=== PATIENT | male | born 1935 | race Caucasian/White ===

== ENCOUNTER 2016-12-03 19:44 | Inpatient (IN) | payer OTHER ==
[~2016-12-03] VITALS: Ht 182.9 cm; Wt 97.1 kg
[~2016-12-03 19:44] MED LIST: ACETAMINOPHEN500 MG PO; AMLODIPINE BESY10 MG PO; ASPIRIN EC325 MG PO; ATORVASTATIN CA40 MG PO; BISOPROLOL-HCT1 EAC1 PO; CARBAMAZEPINE100 M1 PO; CEPHALEXIN500 MG PO; CLEOCIN300 MG PO; COLACE100 MG PO; CYCLOBENZAPRINE10 MG PO; Colace PO; GLUCOPHAGE500 MG PO; HEPARIN SO5000 UNITS SC; Heparin Sodium SC; KETOCONAZOLE60 GM TP; LIPITOR40 MG PO; LISINOPRIL20 MG PO; LITE COAT ASPI325 M1 PO; LYRICA75 MG PO; METFORMIN HCL500 MG PO; MILK OF MAGNESI10 ML PO; Maxipime IV; NOVOLOG PE100 UNITS/ SC; Nitrostat,NitroQuick SL; OXYCODONE HCL10 MG PO; OXYCODONE HCL5 MG PO; POLYETHYLENE GL17 GM PO; PRAVACHOL40 MG PO; Percocet 5/325,Endoc PO; Pletal PO; Santyl TP; TOPROL XL100 MG PO; TRAMADOL HCL50 MG PO; Tylenol Regular Stre PO; Tylenol/Codeine #3 PO; ZESTRIL,PRINIVI20 MG PO; Zebeta PO; Zestril,Prinivil PO; Ziac 2.5/6.25 PO; Zocor PO; Zosyn IV
[2016-12-03 21:26] LABS: EOSINOPHIL (%) 1.3 % (0-5); EOSINOPHIL COUNT 0.1 K/uL (0-0.3); HEMATOCRIT 35.3 % (38.0-50.0); IMMATURE GRANULOCYTE (%) 0.4 % (0.0-0.7); INSTRUMENT ABS NEUTROPHIL CT 6.8 K/uL; LYMPHOCYTE COUNT 0.6 K/uL (1.0-2.8); MCH 30.6 PG (29.0-34.0); MCHC 34.3 G/DL (30.0-36.0); MCV 89.4 FL (86-99); MEAN PLAT.VOLUME 9.8 uM^3 (9.0-12.4); MONOCYTE (%) 7.5 % (3-12); MONOCYTE COUNT 0.6 K/uL (0-0.8); NEUTROPHIL (%) 82.9 % (45-76); NEUTROPHIL COUNT 6.8 K/uL (1.8-6.4); PLATELET COUNT 168 K/uL (156-360); RBC DIS.WIDTH-CV 13.7 % (11.8-14.6); RBC DIS.WIDTH-SD 44.8 % (39-53); RED BLOOD COUNT 3.95 M/uL (4.00-5.50); WHITE BLOOD COUNT 8.2 K/uL (4.1-10.2)
[2016-12-03 21:42] LABS: CHLORIDE 102 mEq/L (99-109); POTASSIUM 4.7 mEq/L (3.7-5.4); SODIUM 135 mEq/L (136-147)
[2016-12-03 21:46] LABS: ANION GAP 9 MEQ/L (2-14); TOTAL BILIRUBIN 0.9 mg/dL (0.0-1.0)
[2016-12-03 21:48] LABS: ALKALINE PHOSPHATASE 125 IU/L (3-129); GFR ESTIMATE (CALCULATED) > 59 mL/min/
[2016-12-03 21:49] LABS: UREA NITROGEN (BUN) 23 mg/dL (9-23)
[2016-12-03 21:51] LABS: GLUCOSE 491 mg/dL (70-99)
[2016-12-03] MEDS ORDERED: ADVIL200 MG PO (23:21)
[2016-12-04 00:50] LABS: POINT-OF-CARE METER ID UU13113702; POINT-OF-CARE USER ID 611181311
[2016-12-04 06:09] LABS: EOSINOPHIL (%) 1.8 % (0-5); EOSINOPHIL COUNT 0.1 K/uL (0-0.3); HEMATOCRIT 31.7 % (38.0-50.0); IMMATURE GRANULOCYTE (%) 0.3 % (0.0-0.7); LYMPHOCYTE COUNT 0.7 K/uL (1.0-2.8); MCH 30.8 PG (29.0-34.0); MCHC 34.7 G/DL (30.0-36.0); MCV 88.8 FL (86-99); MEAN PLAT.VOLUME 9.8 uM^3 (9.0-12.4); MONOCYTE (%) 9.1 % (3-12); MONOCYTE COUNT 0.7 K/uL (0-0.8); NEUTROPHIL (%) 79.2 % (45-76); PLATELET COUNT 155 K/uL (156-360); RBC DIS.WIDTH-CV 13.7 % (11.8-14.6); RBC DIS.WIDTH-SD 44.4 % (39-53); RED BLOOD COUNT 3.57 M/uL (4.00-5.50); WHITE BLOOD COUNT 7.6 K/uL (4.1-10.2)
[2016-12-04 06:15] LABS: CHLORIDE 108 mEq/L (99-109); POTASSIUM 4.3 mEq/L (3.7-5.4); SODIUM 136 mEq/L (136-147)
[2016-12-04 06:17] LABS: GLUCOSE 279 mg/dL (70-99)
[2016-12-04 06:18] LABS: ANION GAP 9 MEQ/L (2-14)
[2016-12-04 06:20] LABS: GFR ESTIMATE (CALCULATED) > 59 mL/min/
[2016-12-04 06:21] LABS: UREA NITROGEN (BUN) 17 mg/dL (9-23)
[2016-12-04 07:23] LABS: POINT-OF-CARE METER ID UU14100415
[2016-12-04 07:27] LABS: Estimated Average Glucose 275 mg/dL (70-123); HEMOGLOBIN A1c (GLYCOHEMOGLOB) 11.2 % HGB (Below 5.7)
[2016-12-04 11:32] LABS: POINT-OF-CARE METER ID UU14100415
[2016-12-04 15:26] VITALS: BP 144/87
[2016-12-04 19:24] VITALS: BP 145/65
[2016-12-04 23:02] VITALS: BP 164/78
[2016-12-05 03:14] VITALS: BP 123/59
[2016-12-05 06:16] LABS: EOSINOPHIL (%) 1.6 % (0-5); EOSINOPHIL COUNT 0.1 K/uL (0-0.3); HEMATOCRIT 31.3 % (38.0-50.0); IMMATURE GRANULOCYTE (%) 0.3 % (0.0-0.7); INSTRUMENT ABS NEUTROPHIL CT 5.6 K/uL; LYMPHOCYTE COUNT 0.6 K/uL (1.0-2.8); MCHC 33.5 G/DL (30.0-36.0); MCV 92.3 FL (86-99); MEAN PLAT.VOLUME 10.1 uM^3 (9.0-12.4); MONOCYTE (%) 8.2 % (3-12); MONOCYTE COUNT 0.6 K/uL (0-0.8); NEUTROPHIL COUNT 5.6 K/uL (1.8-6.4); PLATELET COUNT 148 K/uL (156-360); RBC DIS.WIDTH-CV 14.2 % (11.8-14.6); RBC DIS.WIDTH-SD 48.2 % (39-53); RED BLOOD COUNT 3.39 M/uL (4.00-5.50); WHITE BLOOD COUNT 6.9 K/uL (4.1-10.2)
[2016-12-05 06:40] LABS: ANION GAP 8 MEQ/L (2-14); CHLORIDE 112 MEQ/L (99-109); GFR ESTIMATE (CALCULATED) > 59 mL/min/; SAMPLE HEMOLYSIS CHECK 0; SAMPLE ICTERIC CHECK 0; SAMPLE LIPEMIA CHECK 0; SODIUM 140 MEQ/L (136-147); UREA NITROGEN (BUN) 15 mg/dL (9-23)
[2016-12-05 06:42] LABS: GLUCOSE 114 mg/dL (70-99)
[2016-12-05 07:31] VITALS: BP 139/86
[2016-12-05 10:54] VITALS: BP 143/86
[2016-12-05 11:12] LABS: POINT-OF-CARE METER ID UU13113725
[2016-12-05 15:43] LABS: POINT-OF-CARE METER ID UU13113725
[2016-12-05 17:10] VITALS: BP 143/94
[2016-12-05 19:43] VITALS: BP 137/77
[2016-12-05 20:02] LABS: ADD MIUA? NO; BILIRUBIN NEGATIVE; BLOOD NEGATIVE; COLOR YELLOW ((YELLOW)); GLUCOSE (STRIP) 150; KETONES NEGATIVE; LEUKOCYTES NEGATIVE; NITRITE NEGATIVE; PROTEIN (STRIP) NEGATIVE; SPECIFIC GRAVITY 1.023 (1.000-1.030); UCUL ADDED? NO; UROBILINOGEN 0.2 MG/DL (0.2-1.0)
[2016-12-05 21:24] LABS: POINT-OF-CARE METER ID UU13113725
[2016-12-06] VITALS (8 sets, daily range): BP systolic 135–195; BP diastolic 66–90
[2016-12-06 06:17] LABS: POINT-OF-CARE METER ID UU13113725
[2016-12-06 07:00] LABS: EOSINOPHIL (%) 3.7 % (0-5); EOSINOPHIL COUNT 0.2 K/uL (0-0.3); HEMATOCRIT 30.9 % (38.0-50.0); IMMATURE GRANULOCYTE (%) 0.4 % (0.0-0.7); INSTRUMENT ABS NEUTROPHIL CT 4.3 K/uL; LYMPHOCYTE COUNT 0.5 K/uL (1.0-2.8); MCV 91.2 FL (86-99); MEAN PLAT.VOLUME 10.1 uM^3 (9.0-12.4); MONOCYTE (%) 8.8 % (3-12); MONOCYTE COUNT 0.5 K/uL (0-0.8); NEUTROPHIL (%) 78.3 % (45-76); NEUTROPHIL COUNT 4.3 K/uL (1.8-6.4); PLATELET COUNT 146 K/uL (156-360); RBC DIS.WIDTH-CV 14.1 % (11.8-14.6); RBC DIS.WIDTH-SD 46.8 % (39-53); RED BLOOD COUNT 3.39 M/uL (4.00-5.50); WHITE BLOOD COUNT 5.5 K/uL (4.1-10.2)
[2016-12-06 07:03] LABS: ALKALINE PHOSPHATASE 71 IU/L (3-129); ANION GAP 6 MEQ/L (2-14); CHLORIDE 111 MEQ/L (99-109); GFR ESTIMATE (CALCULATED) > 59 mL/min/; GLUCOSE 93 mg/dL (70-99); SAMPLE HEMOLYSIS CHECK 0; SAMPLE ICTERIC CHECK 0; SAMPLE LIPEMIA CHECK 0; SODIUM 138 MEQ/L (136-147); TOTAL BILIRUBIN 0.4 MG/DL (0.0-1.0); UREA NITROGEN (BUN) 12 mg/dL (9-23)
[2016-12-06 12:09] LABS: POINT-OF-CARE METER ID UU13113725
[2016-12-07 06:24] LABS: EOSINOPHIL (%) 4.9 % (0-5); EOSINOPHIL COUNT 0.2 K/uL (0-0.3); HEMATOCRIT 32.7 % (38.0-50.0); IMMATURE GRANULOCYTE (%) 0.8 % (0.0-0.7); INSTRUMENT ABS NEUTROPHIL CT 3.5 K/uL; LYMPHOCYTE COUNT 0.5 K/uL (1.0-2.8); MCH 30.6 PG (29.0-34.0); MCHC 33.6 G/DL (30.0-36.0); MCV 90.8 FL (86-99); MEAN PLAT.VOLUME 9.6 uM^3 (9.0-12.4); MONOCYTE (%) 10.8 % (3-12); MONOCYTE COUNT 0.5 K/uL (0-0.8); NEUTROPHIL (%) 72.1 % (45-76); NEUTROPHIL COUNT 3.5 K/uL (1.8-6.4); PLATELET COUNT 153 K/uL (156-360); RBC DIS.WIDTH-CV 14.1 % (11.8-14.6); RBC DIS.WIDTH-SD 46.8 % (39-53); WHITE BLOOD COUNT 4.9 K/uL (4.1-10.2)
[2016-12-07 07:04] VITALS: BP 186/81
[2016-12-07 09:29] VITALS: BP 176/76
[2016-12-07 11:07] LABS: ALKALINE PHOSPHATASE 82 IU/L (3-129); ANION GAP 5 MEQ/L (2-14); CHLORIDE 108 MEQ/L (99-109); GFR ESTIMATE (CALCULATED) > 59 mL/min/; SAMPLE HEMOLYSIS CHECK 0; SAMPLE ICTERIC CHECK 0; SAMPLE LIPEMIA CHECK 0; SODIUM 137 MEQ/L (136-147); UREA NITROGEN (BUN) 12 mg/dL (9-23)
[2016-12-07 11:08] LABS: GLUCOSE 169 mg/dL (70-99); TOTAL BILIRUBIN 0.5 MG/DL (0.0-1.0)
[2016-12-07 16:17] VITALS: BP 178/83
[2016-12-07 21:09] LABS: POINT-OF-CARE METER ID UU13113725
[2016-12-07 22:26] VITALS: BP 152/73
[2016-12-08 05:46] LABS: POINT-OF-CARE METER ID UU13113725; POINT-OF-CARE USER ID 611181321
[2016-12-08 06:18] LABS: EOSINOPHIL (%) 3.4 % (0-5); EOSINOPHIL COUNT 0.2 K/uL (0-0.3); HEMATOCRIT 32.3 % (38.0-50.0); IMMATURE GRANULOCYTE (%) 0.4 % (0.0-0.7); INSTRUMENT ABS NEUTROPHIL CT 3.9 K/uL; LYMPHOCYTE COUNT 0.4 K/uL (1.0-2.8); MCH 30.9 PG (29.0-34.0); MCHC 33.4 G/DL (30.0-36.0); MCV 92.3 FL (86-99); MEAN PLAT.VOLUME 9.7 uM^3 (9.0-12.4); MONOCYTE (%) 9.7 % (3-12); MONOCYTE COUNT 0.5 K/uL (0-0.8); NEUTROPHIL (%) 78.2 % (45-76); NEUTROPHIL COUNT 3.9 K/uL (1.8-6.4); PLATELET COUNT 145 K/uL (156-360); RBC DIS.WIDTH-CV 14.3 % (11.8-14.6); RBC DIS.WIDTH-SD 48.4 % (39-53)
[2016-12-08 06:50] VITALS: BP 194/84
[2016-12-08 06:50] LABS: ALKALINE PHOSPHATASE 96 IU/L (3-129); ANION GAP 6 MEQ/L (2-14); CHLORIDE 106 MEQ/L (99-109); GFR ESTIMATE (CALCULATED) > 59 mL/min/; GLUCOSE 240 mg/dL (70-99); POTASSIUM 4.5 MEQ/L (3.7-5.4); SAMPLE HEMOLYSIS CHECK 0; SAMPLE ICTERIC CHECK 0; SAMPLE LIPEMIA CHECK 0; SODIUM 138 MEQ/L (136-147); TOTAL BILIRUBIN 0.5 MG/DL (0.0-1.0); UREA NITROGEN (BUN) 14 mg/dL (9-23)
[2016-12-08 11:25] VITALS: BP 95/54
[2016-12-08] MEDS ORDERED: LIDOCAINE700 MG TD (14:19)
[2016-12-08] MEDS ORDERED: ATORVASTATIN CA40 MG PO (14:19)
[2016-12-08] MEDS ORDERED: LISINOPRIL10 MG PO (14:19)
[2016-12-08] MEDS ORDERED: ZINC OXIDE56.7 GM TP (14:21)
[2016-12-08] MEDS ORDERED: Zeasorb Antifungal T TP (14:21)
[2016-12-08] MEDS ORDERED: LEVEMIR100 UNIT/2 SC (14:31)
[2016-12-08 15:40] VITALS: BP 137/82
== END 2016-12-08 17:44 | DRG 637 ==
LOC: EME → EDBD 19:44 → EME 19:44 → 5EAST 12-04 01:29 → EDOF 12-04 01:29 → 5EAST 12-04 14:27
PROVIDERS: Emergency Medicine; Hospitalist; Internal Medicine
DX: E11.628 Type 2 diabetes mellitus with other skin complications (principal); L03.115 Cellulitis of right lower limb; L89.313 Pressure ulcer of right buttock, stage 3; L89.323 Pressure ulcer of left buttock, stage 3; I83.218 Varicose veins of right lower extremity with both ulcer of other part of lower extremity and inflammation; L97.319 Non-pressure chronic ulcer of right ankle with unspecified severity; S90.31XA Contusion of right foot, initial encounter; W19.XXXA Unspecified fall, initial encounter; E11.622 Type 2 diabetes mellitus with other skin ulcer; E11.65 Type 2 diabetes mellitus with hyperglycemia; L30.4 Erythema intertrigo; D64.9 Anemia, unspecified; I10 Essential (primary) hypertension; I70.0 Atherosclerosis of aorta; R29.6 Repeated falls; E78.5 Hyperlipidemia, unspecified; G89.4 Chronic pain syndrome; M47.816 Spondylosis without myelopathy or radiculopathy, lumbar region; M47.812 Spondylosis without myelopathy or radiculopathy, cervical region; C44.42 Squamous cell carcinoma of skin of scalp and neck; J98.11 Atelectasis; M19.90 Unspecified osteoarthritis, unspecified site; I73.9 Peripheral vascular disease, unspecified; L21.9 Seborrheic dermatitis, unspecified; Z91.19 Patient's noncompliance with other medical treatment and regimen; Z66 Do not resuscitate; Z98.1 Arthrodesis status; Z79.4 Long term (current) use of insulin; Z86.73 Personal history of transient ischemic attack (TIA), and cerebral infarction without residual deficits; Z79.82 Long term (current) use of aspirin; Z99.3 Dependence on wheelchair; Z89.512 Acquired absence of left leg below knee; Z85.46 Personal history of malignant neoplasm of prostate; Z96.651 Presence of right artificial knee joint; Z87.891 Personal history of nicotine dependence
CPT/HCPCS: 70450; 71010; 72125; 72148; 80048; 80053; 81003; 82010; 82607; 82948; 83036; 83605; 84443; 85025; 87040; 93970; 94010; 94640; 97530 GP; 99202; 99281; 99285; A6212; J0690; J1644; J1815; J2270; J2405; J3370; J7030

== ENCOUNTER 2017-01-11 14:14 | Inpatient (IN) | payer OTHER ==
[~2017-01-11] VITALS: Ht 182.9 cm; Wt 100.8 kg
[~2017-01-11 14:14] MED LIST changes: +ADVIL200 MG PO; +LEVEMIR100 UNIT/2 SC; +LIDOCAINE700 MG TD; +LISINOPRIL10 MG PO; +ZINC OXIDE56.7 GM TP; +Zeasorb Antifungal T TP
[2017-01-11 14:56] LABS: EOSINOPHIL (%) 0.5 % (0-5); EOSINOPHIL COUNT 0.1 K/uL (0-0.3); HEMATOCRIT 37.2 % (38.0-50.0); IMMATURE GRANULOCYTE (%) 0.2 % (0.0-0.7); INSTRUMENT ABS NEUTROPHIL CT 10.4 K/uL; MCHC 33.3 G/DL (30.0-36.0); MCV 89.9 FL (86-99); MEAN PLAT.VOLUME 10.1 uM^3 (9.0-12.4); NEUTROPHIL (%) 83.5 % (45-76); NEUTROPHIL COUNT 10.4 K/uL (1.8-6.4); PLATELET COUNT 176 K/uL (156-360); RBC DIS.WIDTH-CV 13.5 % (11.8-14.6); RBC DIS.WIDTH-SD 44.4 % (39-53); RED BLOOD COUNT 4.14 M/uL (4.00-5.50); WHITE BLOOD COUNT 12.4 K/uL (4.1-10.2)
[2017-01-11 15:04] LABS: CHLORIDE 107 mEq/L (99-109); POTASSIUM 4.7 mEq/L (3.7-5.4); SODIUM 140 mEq/L (136-147)
[2017-01-11 15:06] LABS: GLUCOSE 128 mg/dL (70-99)
[2017-01-11 15:08] LABS: ANION GAP 10 MEQ/L (2-14)
[2017-01-11 15:10] LABS: GFR ESTIMATE (CALCULATED) > 59 mL/min/
[2017-01-11 15:11] LABS: UREA NITROGEN (BUN) 32 mg/dL (9-23)
[2017-01-11] MEDS ORDERED: AMLODIPINE BESY10 MG PO (16:39)
[2017-01-11] MEDS ORDERED: ASPERCREME1 EACH TP (16:42)
[2017-01-11] MEDS ORDERED: LEVEMIR FL100 UNIT/1 SC ×3 (16:43→17:05)
[2017-01-11] MEDS ORDERED: PRINIVIL20 MG PO (16:57)
[2017-01-11] MEDS ORDERED: NEURONTIN300 MG PO (17:05)
[2017-01-11] MEDS ORDERED: NOVOLOG PE100 UNITS/ SC (17:08)
[2017-01-11] MEDS ORDERED: ROXICODONE5 MG PO (17:09)
[2017-01-11] MEDS ORDERED: DULCOLAX10 MG PR (17:09)
[2017-01-11] MEDS ORDERED: GLUCAGEN1 MG IM (17:10)
[2017-01-11] MEDS ORDERED: FLEET MINERAL133 ML PR (17:10)
[2017-01-11] MEDS ORDERED: GLUTOSE 1537.5 GM PO (17:11)
[2017-01-11] MEDS ORDERED: MILK OF MAGN PO (17:14)
[2017-01-11] MEDS ORDERED: ACETAMINOPHEN325 M1 PO (17:15)
[2017-01-11] MEDS ORDERED: NIZORAL 2% CREA15 GM TP (17:18)
[2017-01-11] MEDS ORDERED: ZINC OXIDE56.7 GM TP (17:19)
[2017-01-11] MEDS ORDERED: ATHENOL325 MG PO (17:20)
[2017-01-11 20:28] VITALS: BP 151/67
[2017-01-11 22:04] LABS: POINT-OF-CARE METER ID UU13113725
[2017-01-11 23:40] VITALS: BP 120/58
[2017-01-12 06:35] LABS: EOSINOPHIL (%) 0.5 % (0-5); EOSINOPHIL COUNT 0.1 K/uL (0-0.3); HEMATOCRIT 30.2 % (38.0-50.0); IMMATURE GRANULOCYTE (%) 0.4 % (0.0-0.7); INSTRUMENT ABS NEUTROPHIL CT 7.6 K/uL; LYMPHOCYTE COUNT 1.1 K/uL (1.0-2.8); MCH 29.6 PG (29.0-34.0); MCHC 32.8 G/DL (30.0-36.0); MCV 90.4 FL (86-99); MEAN PLAT.VOLUME 10.7 uM^3 (9.0-12.4); MONOCYTE (%) 9.5 % (3-12); MONOCYTE COUNT 0.9 K/uL (0-0.8); NEUTROPHIL (%) 78.3 % (45-76); NEUTROPHIL COUNT 7.6 K/uL (1.8-6.4); PLATELET COUNT 154 K/uL (156-360); RBC DIS.WIDTH-CV 13.7 % (11.8-14.6); RBC DIS.WIDTH-SD 45.4 % (39-53); RED BLOOD COUNT 3.34 M/uL (4.00-5.50); WHITE BLOOD COUNT 9.7 K/uL (4.1-10.2)
[2017-01-12 06:54] LABS: ANION GAP 9 MEQ/L (2-14); CHLORIDE 109 MEQ/L (99-109); GFR ESTIMATE (CALCULATED) > 59 mL/min/; GLUCOSE 159 mg/dL (70-99); POTASSIUM 4.1 MEQ/L (3.7-5.4); SAMPLE HEMOLYSIS CHECK 0; SAMPLE ICTERIC CHECK 0; SAMPLE LIPEMIA CHECK 0; SODIUM 138 MEQ/L (136-147); UREA NITROGEN (BUN) 33 mg/dL (9-23)
[2017-01-12 07:15] VITALS: BP 147/66
[2017-01-12 15:11] VITALS: BP 140/76
[2017-01-12 16:59] LABS: POINT-OF-CARE METER ID UU13113725
[2017-01-12 19:20] VITALS: BP 127/64
[2017-01-12 21:07] LABS: POINT-OF-CARE METER ID UU13113725
[2017-01-12 23:06] VITALS: BP 133/74
[2017-01-13 02:35] VITALS: BP 163/74
[2017-01-13 07:42] LABS: ANION GAP 6 MEQ/L (2-14); CHLORIDE 112 MEQ/L (99-109); GFR ESTIMATE (CALCULATED) > 59 mL/min/; GLUCOSE 135 mg/dL (70-99); SAMPLE HEMOLYSIS CHECK 0; SAMPLE ICTERIC CHECK 0; SAMPLE LIPEMIA CHECK 0; SODIUM 140 MEQ/L (136-147); UREA NITROGEN (BUN) 26 mg/dL (9-23)
[2017-01-13 07:43] VITALS: BP 134/65
[2017-01-13 11:17] VITALS: BP 147/73
[2017-01-13 15:24] VITALS: BP 144/62
[2017-01-13 19:35] VITALS: BP 126/62
[2017-01-13 23:49] VITALS: BP 150/60
[2017-01-14 04:33] VITALS: BP 123/57
[2017-01-14 08:16] VITALS: BP 126/58
[2017-01-14 16:22] VITALS: BP 131/78
[2017-01-14 19:13] VITALS: BP 134/64
[2017-01-14 21:58] LABS: POINT-OF-CARE METER ID UU13113725
[2017-01-15 05:51] LABS: POINT-OF-CARE METER ID UU13113725
[2017-01-15 07:36] LABS: HDL CHOLESTEROL 22 MG/DL (Desirable>=40); LDL CHOLESTEROL 49 mg/dL (Desirable<100); NON-HDL CHOLESTEROL 69 mg/dL (Desirable<160); TOTAL CHOLESTEROL 91 mg/dL (Desirable<200); TRIGLYCERIDES 100 MG/DL (Normal: <150)
[2017-01-15 08:04] VITALS: BP 167/74
[2017-01-15 08:18] LABS: Estimated Average Glucose 174 mg/dL (70-123); HEMOGLOBIN A1c (GLYCOHEMOGLOB) 7.7 % HGB (Below 5.7)
[2017-01-15 12:00] VITALS: BP 134/93
[2017-01-15 17:00] VITALS: BP 131/95
[2017-01-16 08:46] VITALS: BP 172/75
[2017-01-16 11:20] LABS: POINT-OF-CARE METER ID UU13113725
[2017-01-16] MEDS ORDERED: KEFLEX500 MG PO (15:02)
[2017-01-16] MEDS ORDERED: MORPHINE CON20 MG/M1 PO (15:02)
[2017-01-16] MEDS ORDERED: BACTRIM,SEPT1 TABLET PO (15:03)
[2017-01-16 18:02] VITALS: BP 143/65
== END 2017-01-16 18:17 | DRG 638 ==
LOC: EME 14:14 → 5EAST 16:30 → EDOF 16:30 → 5EAST 19:43
PROVIDERS: Emergency Medicine; Internal Medicine
DX: E11.628 Type 2 diabetes mellitus with other skin complications (principal); L97.511 Non-pressure chronic ulcer of other part of right foot limited to breakdown of skin; I63.9 Cerebral infarction, unspecified; D64.9 Anemia, unspecified; E11.51 Type 2 diabetes mellitus with diabetic peripheral angiopathy without gangrene; E11.621 Type 2 diabetes mellitus with foot ulcer; C44.40 Unspecified malignant neoplasm of skin of scalp and neck; I10 Essential (primary) hypertension; L03.115 Cellulitis of right lower limb; L03.116 Cellulitis of left lower limb; G81.94 Hemiplegia, unspecified affecting left nondominant side; E11.8 Type 2 diabetes mellitus with unspecified complications; Z89.512 Acquired absence of left leg below knee; Z85.46 Personal history of malignant neoplasm of prostate; Z85.828 Personal history of other malignant neoplasm of skin; R79.89 Other specified abnormal findings of blood chemistry; I87.2 Venous insufficiency (chronic) (peripheral); Z51.5 Encounter for palliative care; I83.018 Varicose veins of right lower extremity with ulcer other part of lower leg; E11.65 Type 2 diabetes mellitus with hyperglycemia; R26.2 Difficulty in walking, not elsewhere classified; Z86.73 Personal history of transient ischemic attack (TIA), and cerebral infarction without residual deficits; G89.29 Other chronic pain; M54.9 Dorsalgia, unspecified; L89.510 Pressure ulcer of right ankle, unstageable; L89.892 Pressure ulcer of other site, stage 2; E78.5 Hyperlipidemia, unspecified; L89.890 Pressure ulcer of other site, unstageable; Z89.432 Acquired absence of left foot
CPT/HCPCS: 70450; 80048; 80061; 80202; 82948; 83036; 83605; 85025; 87040; 93005; 93971; 94760; 94799; 99281; 99285; A6212; J0295; J1644; J1815; J3370; J7030; J7050